=== PATIENT | female | born 1950 ===

== ENCOUNTER → 2021-10-17 14:02 | Outpatient (CLI) | payer MEDICARE, BC, SELFPAY ==
[2021-10-23 12:36] LABS: Dil Russell Viper Venom Conf 1.9 ratio (0.8-1.2); Dilute Russell Viper Venom 82.3 sec (0.0-47.0); Dilute Russell Viper Venom Mix 62.1 sec (0.0-40.4); Lupus Reflex Interpretation Comment: (.)
== END ==
PROVIDERS: PCP Physician Assistant Medical; Visit Provider Family Medicine
DX: I26.99 Other pulmonary embolism without acute cor pulmonale (principal)
CPT/HCPCS: 85598; 85613; 86146; 86147; 86148

== ENCOUNTER → 2023-10-14 09:08 | Outpatient (CLI) | payer MEDICARE, BC, SELFPAY ==
[2023-10-14 20:43] LABS: Appearance Urine UA CLEAR; Bilirubin Urine UA NEGATIVE (NEGATIVE); Color Urine UA YELLOW; Glucose Urine UA NEGATIVE (Negative); Ketones Urine UA NEGATIVE (NEGATIVE); Leukocyte Esterase Urine UA NEGATIVE (NEGATIVE); Nitrite Urine UA NEGATIVE (Negative); Occult Blood Urine UA NEGATIVE (Negative); Protein Urine UA NEGATIVE (Negative); Specific Gravity Urine UA <=1.005 (1.000-1.035); Urobilinogen Urine UA 0.2 E.U./dL (0.2)
[2023-10-14 20:50] LABS: Alanine Aminotransferase 16 IU/L (<35); Albumin 4.5 g/dL (3.5-5.0); Albumin Globulin Ratio 1.6 (1.0-2.8); Alkaline Phosphatase 52 U/L (38-126); Aspartate Aminotransferase 28 IU/L (14-36); BUN Creatinine Ratio 23.6 (6-22); Bilirubin Total 0.5 mg/dL (0.2-1.3); Blood Urea Nitrogen 21 mg/dL (7-17); Calcium 9.7 mg/dL (8.4-10.2); Carbon Dioxide 25 mmol/L (22-32); Chloride 96 mmol/L (98-107); Estimated Glomerular Filt Rate > 60 mL/min (>60); Globulin 2.9 g/dL (1.7-4.1); Glucose 97 mg/dL (80-110); HEMOLYSIS 23 (0-50); Potassium 4.5 mmol/L (3.4-5.1); Sodium 130 mmol/L (137-145); Total Protein 7.4 g/dL (6.3-8.2)
[2023-10-14 20:53] LABS: Bacteria Urine None Seen; Culture Indicated Urine Cult Not Indicated; RBC Urine None Seen (0-5/HPF); Squamous Epithelial Cell Urine 0-1 /HPF (0-5/HPF); Urine Volume 10mL (spun); WBC Urine None Seen (0-5/HPF)
[2023-10-14 21:03] LABS: Progesterone, Total 0.49 ng/mL
[2023-10-14 21:19] LABS: Estradiol, Total 20.4 pg/mL
[2023-10-16 03:40] LABS: Valproic Acid (Depakene) Total < 4 ug/mL (50-100)
== END ==
PROVIDERS: PCP Physician Assistant Medical; Visit Provider Family Medicine
DX: N18.31 Chronic kidney disease, stage 3a (principal); D68.61 Antiphospholipid syndrome; N30.00 Acute cystitis without hematuria; R53.83 Other fatigue; M85.80 Other specified disorders of bone density and structure, unspecified site; N95.1 Menopausal and female climacteric states; R89.9 Unspecified abnormal finding in specimens from other organs, systems and tissues; Z79.899 Other long term (current) drug therapy
CPT/HCPCS: 80053; 80164; 81001; 82525; 82610; 82627; 82670; 84140; 84144; 84402; 84403; 84630